=== PATIENT | female | born 1995 ===

== ENCOUNTER 2017-07-05 16:57 | Inpatient (IN) | payer BC ==
[2017-07-05] MEDS ORDERED: Misoprostol 200 MCG Tab PO PRN (17:46)
[2017-07-05] MEDS ORDERED: Sodium Chloride 0.9% 10 ML Syringe FLUSH PRN (17:46)
[2017-07-05] MEDS ORDERED: Methylergonovine 0.2 MG/1 ML Amp IM PRN (17:46)
[2017-07-05] MEDS ORDERED: Terbutaline 1 MG/ML SDV SUBCUT PRN (17:46)
[2017-07-05] MEDS ORDERED: Misoprostol 25 MCG (1/4 of 100 MCG) Tab PO PRN (17:46)
[2017-07-05] MEDS ORDERED: Misoprostol 25 MCG (1/4 of 100 MCG) Tab VAG PRN (17:46)
[2017-07-05] MEDS ORDERED: Sodium Chloride 0.9% 2.5 ML Syringe FLUSH PRN (17:46)
[2017-07-05] MEDS ORDERED: Lidocaine 1% 50 ML MDV INJECT PRN (17:46)
[2017-07-05] MEDS ORDERED: Water For Irrigation,Sterile 1,000 ML Container IRR PRN (17:46)
[2017-07-05] MEDS ORDERED: Carboprost Tromethamine 250 MCG/1 ML Amp IM PRN (17:46)
[2017-07-05] MEDS ORDERED: Misoprostol 25 MCG (1/4 of 100 MCG) Tab PO SCH (18:00)
[2017-07-05] MEDS ORDERED: Oxytocin/0.9 % Sodium Chloride 30 UNIT/500 ML BAG IV SCH ×2 (18:00)
[2017-07-05] MEDS ORDERED: Misoprostol 25 MCG (1/4 of 100 MCG) Tab VAG SCH (18:00)
[2017-07-05] MEDS ORDERED: Ampicillin 2 GM in Sodium Chloride 0.9% 100 ML IV ONE (18:10)
[2017-07-05] MEDS ORDERED: Ampicillin 2 GM in Sodium Chloride 0.9% 100 ML IV SCH (18:15)
[2017-07-05] MEDS: Lactated Ringers 1,000 ML IV SCH (18:34)
[2017-07-06] MEDS: Nalbuphine 10 MG/1 ML Vial IVPUSH PRN ×2 (04:19→12:39)
[2017-07-06] MEDS: Lactated Ringers 1,000 ML IV SCH ×3 (06:54→15:08)
[2017-07-06] MEDS ORDERED: Ampicillin 2 GM AdvVial IV ONE (07:49)
[2017-07-06] MEDS ORDERED: Sodium Chloride 0.9% 100 ML ONE (07:50)
--- NOTE | 2017-07-06 07:50 | PCM.LDHP ---
L&D History of Present Illness - General Date of Service: 07/06/17 Admit Problem/Dx: Patient Status Order with Admit Dx/Problem 07/05/17 17:46 Patient Status [ADT] Routine Admission Diagnosis/Problem Admission Diagnosis/Problem 07/06/17 07:46 22 yo EDC 07/07/2017 39 6/7wks. IOL due to having to leave for work next week. A+, RI, GBS pos. Source of Information: Patient History Limitations: Reports: No Limitations - History of Present Illness Pain Score: 4 Improves with: Reports: None Worsens with: Reports: None Associated Symptoms: Reports: N - Related Data Allergies/Adverse Reactions: Allergies Allergy/AdvReac Type Severity Reaction Status Date / Time No Known Allergies Allergy Verified 04/16/17 13:04 Past Medical History [employer] History: Reports: - Past Surgical History HEENT Surgical History: Reports: Other (See Below) Other HEENT Surgeries/Procedures: wisdom tooth extraction Social & Family History - Family History Family Medical History: Noncontributory - Tobacco Use Smoking Status *Q: Never Smoker Second Hand Smoke Exposure: No - Caffeine Use Caffeine Use: Reports: Coffee, Soda - Recreational Drug Use Recreational Drug Use: No H&P Review of Systems - Review of Systems: Review Of Systems: See Below General: Reports: No Symptoms HEENT: Reports: No Symptoms Pulmonary: Reports: No Symptoms Cardiovascular: Reports: No Symptoms Gastrointestinal: Reports: No Symptoms Genitourinary: Reports: No Symptoms Musculoskeletal: Reports: No Symptoms Skin: Reports: No Symptoms Psychiatric: Reports: No Symptoms Neurological: Reports: No Symptoms Hematologic/Lymphatic: Reports: No Symptoms Immunologic: Reports: No Symptoms L&D Exam - Exam Exam: See Below - Vital Signs Weight: 86.636 kg - Exam General: Alert, Oriented, Cooperative Cardiovascular: Regular Rhythm Rectal Exam: Deferred Genitourinary: Normal external exam, Normal speculum exam, Cervical dilitation, Cervical fluid Back Exam: Full Range of Motion Extremities: Normal Range of Motion, Non-Tender, No Pedal Edema, Normal Capillary Refill Skin: Warm, Dry, Intact Neurological: Reflexes Equal Bilateral, Normal Gait, Normal Speech, Normal Tone , Sensation Intact Psychiatric: Alert, Normal Affect, Normal Mood - Patient Data Lab Results Last 24 hrs: Laboratory Results - last 24 hr 07/05/17 07/05/17 Range/Units 18:22 18:22 WBC 4.76 (4.0-11.0) K/uL RBC 3.70 L (4.30-5.90) M/uL Hgb 10.4 L (12.0-16.0) g/dL Hct 31.9 L (36.0-46.0) % MCV 86.2 (80.0-98.0) fL MCH 28.1 (27.0-32.0) pg MCHC 32.6 (31.0-37.0) g/dL RDW Std Deviation 43.5 (28.0-62.0) fl RDW Coeff of Ryan 14 (11.0-15.0) % Plt Count 203 (150-400) K/uL MPV 11.90 (7.40-12.00) fL Nucleated RBC % 0.0 /100WBC Nucleated RBCs # 0 K/uL Blood Type A POSITIVE Antibody Screen NEGATIVE Result Diagrams: 07/05/17 18:22 - Problem List (1) Supervision of normal IUP (intrauterine ) in primigravida SNOMED Code(s): 78010030, 088132472, 090028047 ICD Code: Z34.00 - ENCNTR FOR SUPRVSN OF NORMAL FIRST , UNSP TRIMESTER Status: Acute Priority: High Current Visit: Yes Qualifiers: Trimester: third trimester Qualified Code(s): Z34.03 - Encounter for supervision of normal first , third trimester (2) Positive GBS test SNOMED Code(s): 5693919057599 ICD Code: B95.1 - STREPTOCOCCUS, GROUP B, CAUSING DISEASES CLASSD ELSWHR Status: Acute Priority: High Current Visit: Yes Problem List Initiated/Reviewed/Updated: Yes Orders Last 24hrs: Active Orders 24 hr Category Date Time Status Patient Status [ADT] Routine ADT 07/05/17 17:46 Active Bedrest Bathroom Privileges [RC] ASDIRECTED Care 07/05/17 17:46 Active Communication Order [RC] ASDIRECTED Care 07/05/17 17:46 Active Communication Order [RC] ASDIRECTED Care 07/05/17 17:46 Active Communication Order [RC] ASDIRECTED Care 07/05/17 17:46 Active Heart Tones [RC] CONTINUOUS Care 07/05/17 17:46 Active Non Stress Test [RC] PER UNIT ROUTINE Care 07/05/17 17:46 Active May Shower [RC] ASDIRECTED Care 07/05/17 17:46 Active Notify Provider [RC] PRN Care 07/05/17 17:46 Active Notify Provider [RC] PRN Care 07/05/17 17:46 Active Notify Provider [RC] PRN Care 07/05/17 17:46 Active Notify Provider [RC] STAT Care 07/05/17 17:46 Active Oxygen Therapy [RC] ASDIRECTED Care 07/05/17 17:46 Active Up ad Lara [RC] ASDIRECTED Care 07/05/17 17:46 Active Vaginal Exam [RC] PRN Care 07/05/17 17:46 Active Vaginal Exam [RC] PRN Care 07/05/17 17:46 Active Vital Signs [RC] PER UNIT ROUTINE Care 07/05/17 17:46 Active Vital Signs [RC] PER UNIT ROUTINE Care 07/05/17 17:46 Active Ampicillin 1 gm Med 07/05/17 22:00 Active Sodium Chloride 0.9% [Normal Saline] 50 ml IV Q4H Carboprost Tromethamine [Hemabate DS] Med 07/05/17 17:46 Active 250 mcg IM ASDIRECTED PRN Lactated Ringers [Ringers, Lactated] 1,000 ml Med 07/05/17 18:00 Active IV ASDIRECTED Lidocaine 1% [Xylocaine 1%] Med 07/05/17 17:46 Active 50 ml INJECT .ONCE PRN Methylergonovine [Methergine] Med 07/05/17 17:46 Active 0.2 mg IM ASDIRECTED PRN Misoprostol [Cytotec] Med 07/05/17 17:46 Active 200 mcg PO .ONCE PRN Misoprostol [Cytotec] Med 07/05/17 18:00 Active 25 mcg PO .ONCE Misoprostol [Cytotec] Med 07/05/17 17:46 Active 25 mcg PO Q4H PRN Misoprostol [Cytotec] Med 07/05/17 18:00 Active 25 mcg VAG .ONCE Misoprostol [Cytotec] Med 07/05/17 17:46 Active 25 mcg VAG Q4H PRN Nalbuphine [Nubain] Med 07/05/17 17:46 Active 10 mg IVPUSH ASDIRECTED PRN Oxytocin/0.9 % Sodium Chloride [Oxytocin 30 Unit/500 ML Med 07/05/17 18:00 Active -NS] 30 unit in 500 ml IV ASDIRECTED Oxytocin/0.9 % Sodium Chloride [Oxytocin 30 Unit/500 ML Med 07/05/17 18:00 Active -NS] 30 unit in 500 ml IV TITRATE Sodium Chloride 0.9% [Saline Flush] Med 07/05/17 17:46 Active 10 ml FLUSH ASDIRECTED PRN Sodium Chloride 0.9% [Saline Flush] Med 07/05/17 17:46 Active 2.5 ml FLUSH ASDIRECTED PRN Terbutaline [Brethine] Med 07/05/17 17:46 Active 0.25 mg SUBCUT ASDIRECTED PRN Water For Irrigation,Sterile [Sterile Water for Med 07/05/17 17:46 Active Irrigation] 1,000 ml IRR ASDIRECTED PRN Scalp Electrode [WOMSER] Per Unit Routine Oth 07/05/17 17:46 Ordered Medication Administration Instruction [OM.PC] Q3H Oth 07/05/17 18:00 Ordered Peripheral IV Insertion Adult [OM.PC] Routine Oth 07/05/17 17:46 Ordered Resuscitation Status Routine Resus Stat 07/05/17 17:46 Ordered Medication Orders Carboprost Tromethamine (Hemabate Ds) 250 mcg IM ASDIRECTED PRN PRN Reason: Post Hemorrhage Lactated Ringer's (Ringers, Lactated) 1,000 mls @ 150 mls/hr IV ASDIRECTED MANOHAR Last Admin: 07/06/17 06:54 Dose: 150 mls/hr Infusion: 07/06/17 01:15 Dose: 150 mls/hr Admin: 07/05/17 18:34 Dose: 150 mls/hr Oxytocin/Sodium Chloride (Oxytocin 30 Unit/500 Ml-Ns) 30 unit in 500 mls @ 999 mls/hr IV ASDIRECTED MANOHAR Oxytocin/Sodium Chloride (Oxytocin 30 Unit/500 Ml-Ns) 30 unit in 500 mls @ 2 mls/hr IV TITRATE MANOHAR; 2 MUNITS/MIN PRN Reason: Protocol Last Titration: 07/06/17 06:17 Dose: 14 munits/min, 14 mls/hr Titration: 07/06/17 05:13 Dose: 12 munits/min, 12 mls/hr Titration: 07/06/17 04:54 Dose: 10 munits/min, 10 mls/hr Titration: 07/06/17 03:58 Dose: 8 munits/min, 8 mls/hr Titration: 07/06/17 03:25 Dose: 6 munits/min, 6 mls/hr Titration: 07/06/17 02:15 Dose: 4 munits/min, 4 mls/hr Admin: 07/06/17 01:41 Dose: 2 munits/min, 2 mls/hr Ampicillin Sodium 1 gm/ Sodium (Chloride) 50 mls @ 100 mls/hr IV Q4H COUNTS INCLUDE 234 BEDS AT THE [facility] Lidocaine HCl (Xylocaine 1%) 50 ml INJECT .ONCE PRN PRN Reason: Laceration repair Methylergonovine Maleate (Methergine) 0.2 mg IM ASDIRECTED PRN PRN Reason: Post Hemorrhage Misoprostol (Cytotec) 200 mcg PO .ONCE PRN PRN Reason: Post Hemorrhage Misoprostol (Cytotec) 25 mcg VAG .ONCE COUNTS INCLUDE 234 BEDS AT THE [facility] Last Admin: 07/05/17 18:34 Dose: 25 mcg Misoprostol (Cytotec) 25 mcg VAG Q4H PRN PRN Reason: Cervical Ripening Misoprostol (Cytotec) 25 mcg PO Q4H PRN PRN Reason: Cervical Ripening Misoprostol (Cytotec) 25 mcg PO .ONCE COUNTS INCLUDE 234 BEDS AT THE [facility] Last Admin: 07/05/17 18:35 Dose: 25 mcg Nalbuphine HCl (Nubain) 10 mg IVPUSH ASDIRECTED PRN PRN Reason: Pain (severe 7-10) Last Admin: 07/06/17 04:19 Dose: 10 mg Sodium Chloride (Saline Flush) 10 ml FLUSH ASDIRECTED PRN PRN Reason: Keep Vein Open Sodium Chloride (Saline Flush) 2.5 ml FLUSH ASDIRECTED PRN PRN Reason: Keep Vein Open Sterile Water (Sterile Water For Irrigation) 1,000 ml IRR ASDIRECTED PRN PRN Reason: delivery Terbutaline Sulfate (Brethine) 0.25 mg SUBCUT ASDIRECTED PRN PRN Reason: Tacysystole Assessment/Plan Comment:: IOL A: 22 yo EDC 07/07/2017 39 6/7wks. IOL due to having to leave for work next week. A+, RI, GBS pos. P: Admit to L&D, cytotec to pitocin, Pain mngt prn, Amp for GBS pos. Anticipate . Dr Cordova updated on pt status.
[2017-07-06] MEDS: Ampicillin 1 GM in Sodium Chloride 0.9% 50 ML IV SCH ×4 (12:15→19:11)
[2017-07-06] MEDS ORDERED: Ropivacaine 100 ML ONE (14:08)
[2017-07-06] MEDS ORDERED: fentaNYL 100 MCG/2 ML SDV ONE (14:08)
--- NOTE | 2017-07-06 18:07 | PCM.DEL ---
L & D Note - General Info Date of Service: 07/06/17 Mother's Due Date: 07/07/17 - Delivery Note Labor: Induced by Oxytocin Cervical Ripening Method: Misoprostil Delivery Outcome: Livebirth Delivery Method: Spontaneous Vaginal Delivery-Single Infant Delivery Mode: Spontaneous Presentation: Vertex Nuchal Cord: None Anesthesia Type: Epidural Amniotic Fluid Description: Clear Episiotomy Type: None Laceration: 2nd Degree, Sulcus Suture type: Vicryl Suture size: 3-0 Placenta: Intact Cord: 3 Vessels Estimated Blood Loss: 400 Resuscitation Needed: No Second Stage Interventions: Reports: Pushing Effectively, Pushing, Pulls Own Legs Back Delivery Comments (Free Text/Narrative):: of viable female over intact perineum. head del with great pushing, shoulder and body followed. Infant to mothers abdomen with spont cry. RN at for ops. Delayed cord clamping. Pitocin to IVF. Cord clamped x2 and cut by FOB. Cord blood collected. Placenta delivered grossly intact. Inspection noted 2nd degree sulcus tear that was repaired in the usual manor. Fundus firm but continued to bleed. Methergin given IM. Bleeding slowed and stopped. EBL 400cc, APGARS 8/9, Wt pending bonding. Mother and baby left in stable condition for recovery. Induction Criteria - Decker Score Decker Score Dilation: Closed Decker Score Effacement: 60-70% Decker Score 's Station: -2 Decker Score Consistency: Soft Decker Score Cervix Position: Posterior Decker Score Total: 5 Decker Score Presenting Part: Reports: Cephalic - Induction Gestational Age >/= 39 wks: Yes Estimated Pelvis: Reports: Adequate Reassuring Monitoring Strip: Yes Absence of Tachy Systole: Yes - General Info Date of Service: 07/06/17 Admission Dx/Problem (Free Text): Patient Status Order with Admit Dx/Problem 07/05/17 17:46 Patient Status [ADT] Routine Admission Diagnosis/Problem Admission Diagnosis/Problem 07/06/17 07:46 22 yo EDC 07/07/2017 39 6/7wks. IOL due to having to leave for work next week. A+, RI, GBS pos. Functional Status: Reports: Pain Controlled - Review of Systems General: Reports: No Symptoms HEENT: Reports: No Symptoms Pulmonary: Reports: No Symptoms Cardiovascular: Reports: No Symptoms Gastrointestinal: Reports: No Symptoms Genitourinary: Reports: No Symptoms Musculoskeletal: Reports: No Symptoms Skin: Reports: No Symptoms Neurological: Reports: No Symptoms Psychiatric: Reports: No Symptoms - Patient Data Weight - Most Recent: 86.636 kg Lab Results Last 24 Hours: Laboratory Results - last 24 hr 07/05/17 07/05/17 Range/Units 18:22 18:22 WBC 4.76 (4.0-11.0) K/uL RBC 3.70 L (4.30-5.90) M/uL Hgb 10.4 L (12.0-16.0) g/dL Hct 31.9 L (36.0-46.0) % MCV 86.2 (80.0-98.0) fL MCH 28.1 (27.0-32.0) pg MCHC 32.6 (31.0-37.0) g/dL RDW Std Deviation 43.5 (28.0-62.0) fl RDW Coeff of Ryan 14 (11.0-15.0) % Plt Count 203 (150-400) K/uL MPV 11.90 (7.40-12.00) fL Nucleated RBC % 0.0 /100WBC Nucleated RBCs # 0 K/uL Blood Type A POSITIVE Antibody Screen NEGATIVE Med Orders - Current: Current Medications Carboprost Tromethamine (Hemabate Ds) 250 mcg IM ASDIRECTED PRN PRN Reason: Post Hemorrhage Lactated Ringer's (Ringers, Lactated) 1,000 mls @ 150 mls/hr IV ASDIRECTED MANOHAR Last Admin: 07/06/17 15:08 Dose: 150 mls/hr Oxytocin/Sodium Chloride (Oxytocin 30 Unit/500 Ml-Ns) 30 unit in 500 mls @ 999 mls/hr IV ASDIRECTED MANOHAR Oxytocin/Sodium Chloride (Oxytocin 30 Unit/500 Ml-Ns) 30 unit in 500 mls @ 2 mls/hr IV TITRATE MANOHAR; 2 MUNITS/MIN PRN Reason: Protocol Last Titration: 07/06/17 16:50 Dose: 14 munits/min, 14 mls/hr Ampicillin Sodium 1 gm/ Sodium (Chloride) 50 mls @ 100 mls/hr IV Q4H MANOHAR Last Admin: 07/06/17 16:29 Dose: 100 mls/hr Lidocaine HCl (Xylocaine 1%) 50 ml INJECT .ONCE PRN PRN Reason: Laceration repair Methylergonovine Maleate (Methergine) 0.2 mg IM ASDIRECTED PRN PRN Reason: Post Hemorrhage Last Admin: 07/06/17 17:53 Dose: 0.2 mg Misoprostol (Cytotec) 200 mcg PO .ONCE PRN PRN Reason: Post Hemorrhage Misoprostol (Cytotec) 25 mcg VAG .ONCE MANOHAR Last Admin: 07/05/17 18:34 Dose: 25 mcg Misoprostol (Cytotec) 25 mcg VAG Q4H PRN PRN Reason: Cervical Ripening Misoprostol (Cytotec) 25 mcg PO Q4H PRN PRN Reason: Cervical Ripening Misoprostol (Cytotec) 25 mcg PO .ONCE MANOHAR Last Admin: 07/05/17 18:35 Dose: 25 mcg Nalbuphine HCl (Nubain) 10 mg IVPUSH ASDIRECTED PRN PRN Reason: Pain (severe 7-10) Last Admin: 07/06/17 12:39 Dose: 10 mg Sodium Chloride (Saline Flush) 10 ml FLUSH ASDIRECTED PRN PRN Reason: Keep Vein Open Sodium Chloride (Saline Flush) 2.5 ml FLUSH ASDIRECTED PRN PRN Reason: Keep Vein Open Sterile Water (Sterile Water For Irrigation) 1,000 ml IRR ASDIRECTED PRN PRN Reason: delivery Terbutaline Sulfate (Brethine) 0.25 mg SUBCUT ASDIRECTED PRN PRN Reason: Tacysystole Discontinued Medications Ampicillin Sodium (Ampicillin) Confirm Administered Dose 2 gm IV .STK-MED ONE Stop: 07/06/17 07:50 Last Admin: 07/06/17 08:19 Dose: Not Given Fentanyl (Sublimaze) Confirm Administered Dose 200 mcg .ROUTE .STK-MED ONE Stop: 07/06/17 14:09 Last Admin: 07/06/17 15:33 Dose: Not Given Ampicillin Sodium 2 gm/ Sodium (Chloride) 100 mls @ 200 mls/hr IV Q4H MANOHAR Ampicillin Sodium 2 gm/ Sodium (Chloride) 100 mls @ 200 mls/hr IV ONETIME ONE Stop: 07/05/17 18:39 Last Admin: 07/06/17 07:56 Dose: 200 mls/hr Sodium Chloride (Normal Saline) Confirm Administered Dose 100 mls @ as directed .ROUTE .STK-MED ONE Stop: 07/06/17 07:51 Last Admin: 07/06/17 08:19 Dose: Not Given Ropivacaine (Naropin 0.2%) Confirm Administered Dose 100 mls @ as directed .ROUTE .STK-MED ONE Stop: 07/06/17 14:09 Last Admin: 07/06/17 15:33 Dose: Not Given - Exam General: Alert, Oriented, Cooperative, No Acute Distress Lungs: Normal Respiratory Effort GI/Abdominal Exam: Soft, Non-Tender (Female) Exam: Normal External Exam, Normal Bimanual Exam, Vaginal Bleeding, Vaginal Lesions Skin: Warm, Dry, Intact Wound/Incisions: Healing Well Neurological: No New Focal Deficit, Normal Speech, Normal Tone Psy/Mental Status: Alert, Normal Affect, Normal Mood - Problem List & Annotations (1) Supervision of normal IUP (intrauterine ) in primigravida SNOMED Code(s): 17644442, 266800568, 521756325 Code(s): Z34.00 - ENCNTR FOR SUPRVSN OF NORMAL FIRST , UNSP TRIMESTER Status: Acute Priority: High Current Visit: Yes Qualifiers: Trimester: third trimester Qualified Code(s): Z34.03 - Encounter for supervision of normal first , third trimester (2) Positive GBS test SNOMED Code(s): 3233972640481 Code(s): B95.1 - STREPTOCOCCUS, GROUP B, CAUSING DISEASES CLASSD ELSWHR Status: Acute Priority: High Current Visit: Yes (3) (normal spontaneous vaginal delivery) SNOMED Code(s): 02215215 Code(s): O80 - ENCOUNTER FOR FULL-TERM UNCOMPLICATED DELIVERY Status: Acute Priority: High Current Visit: Yes - Problem List Review Problem List Initiated/Reviewed/Updated: Yes - My Orders Last 24 Hours: My Active Orders 07/05/17 22:00 Ampicillin 1 gm Sodium Chloride 0.9% [Normal Saline] 50 ml IV Q4H 07/06/17 Lunch Regular Diet [DIET] - Assessment Assessment:: Delivery of viable girl. APGARS 8/9, Wt pending bonding. 2nd degree lac with repair. EBL 400cc. Stable - Plan Plan:: IOL A: 22 yo EDC 07/07/2017 39 6/7wks. IOL due to having to leave for work next week. A+, RI, GBS pos. P: Admit to L&D, cytotec to pitocin, Pain mngt prn, Amp for GBS pos. Anticipate . Dr Cordova updated on pt status. Delivery routine pp plan of care
[2017-07-06] MEDS ORDERED: Docusate Sodium 100 MG Cap PO PRN (18:15)
[2017-07-06] MEDS ORDERED: Witch Hazel Medicated Pads 40/Jar TOP PRN (18:15)
[2017-07-06] MEDS ORDERED: oxyCODONE 5 MG Tab PO PRN (18:15)
[2017-07-06] MEDS ORDERED: Benzocaine/Menthol 20%-0.5% Spray 78 GM Cannister TOP PRN (18:15)
[2017-07-06] MEDS ORDERED: Bisacodyl 10 MG Supp RECTAL PRN (18:15)
[2017-07-06] MEDS ORDERED: Ibuprofen 400 MG Tab PO PRN (18:15)
[2017-07-06] MEDS ORDERED: Lanolin 100% Cream 7 GM Tube TOP PRN (18:15)
[2017-07-06] MEDS ORDERED: Acetaminophen 500 MG Tab PO PRN ×2 (18:15)
[2017-07-07] MEDS: Ibuprofen 800 MG Tab PO PRN ×2 (00:38→09:31)
--- NOTE | 2017-07-07 08:48 | PCM.DCSUM1 ---
Discharge Summary - Hospital Course Free Text/Narrative:: Discharge home with infant, follow up 6 weeks for post visit. - Discharge Data Discharge Date: 07/07/17 Discharge Disposition: Home, Self-Care 01 Condition: Good - Discharge Diagnosis/Problem(s) (1) Supervision of normal IUP (intrauterine ) in primigravida SNOMED Code(s): 65524212, 554844479, 475157405 ICD Code: Z34.00 - ENCNTR FOR SUPRVSN OF NORMAL FIRST , UNSP TRIMESTER Status: Acute Priority: High Current Visit: Yes Qualifiers: Trimester: third trimester Qualified Code(s): Z34.03 - Encounter for supervision of normal first , third trimester (2) Positive GBS test SNOMED Code(s): 6782771272111 ICD Code: B95.1 - STREPTOCOCCUS, GROUP B, CAUSING DISEASES CLASSD ELSWHR Status: Acute Priority: High Current Visit: Yes (3) (normal spontaneous vaginal delivery) SNOMED Code(s): 18369113 ICD Code: O80 - ENCOUNTER FOR FULL-TERM UNCOMPLICATED DELIVERY Status: Acute Priority: High Current Visit: Yes - Patient Instructions Diet: Usual Diet as Tolerated Activity: As Tolerated, No Strenuous Activities, Rest and Relax Today Driving: May Drive Today Showering/Bathing: May Shower Notify Provider of: Fever, Increased Pain, Swelling and Redness, Nausea and/or Vomiting Other/Special Instructions: Discharge home with , follow up 6 weeks for post visit. - Discharge Plan Referrals: [facility] [Outside] Katrin Jon CNM [Mid-] - 08/17/17 10:30 am - General Info Date of Service: 07/07/17 Admission Dx/Problem (Free Text: Patient Status Order with Admit Dx/Problem 07/05/17 17:46 Patient Status [ADT] Routine Admission Diagnosis/Problem Admission Diagnosis/Problem 07/06/17 07:46 22 yo EDC 07/07/2017 39 6/7wks. IOL due to having to leave for work next week. A+, RI, GBS pos. Functional Status: Reports: Pain Controlled, Tolerating Diet, Ambulating, Urinating - Review of Systems General: Reports: No Symptoms HEENT: Reports: No Symptoms Pulmonary: Reports: No Symptoms Cardiovascular: Reports: No Symptoms Gastrointestinal: Reports: No Symptoms Genitourinary: Reports: No Symptoms Musculoskeletal: Reports: No Symptoms Skin: Reports: No Symptoms Neurological: Reports: No Symptoms Psychiatric: Reports: No Symptoms - Patient Data Vitals - Most Recent: Last Vital Signs Temp 36.4 C 07/07/17 05:00 Pulse 100 07/07/17 05:00 Resp 16 07/07/17 05:00 BP 119/67 07/07/17 05:00 Pulse Ox 97 07/07/17 05:00 Weight - Most Recent: 86.636 kg Lab Results - Last 24 hrs: Laboratory Results - last 24 hr 07/07/17 Range/Units 06:58 Hgb 9.4 L (12.0-16.0) g/dL Hct 28.6 L (36.0-46.0) % Med Orders - Current: Current Medications Acetaminophen (Tylenol Extra Strength) 500 mg PO Q4H PRN PRN Reason: Pain Acetaminophen (Tylenol Extra Strength) 1,000 mg PO Q4H PRN PRN Reason: Pain Benzocaine/Menthol (Dermoplast Pain Relief 20%-0.5% [place]) 0 gm TOP ASDIRECTED PRN PRN Reason: Perineal Comfort Measure Last Admin: 07/06/17 21:21 Dose: 78 gm Bisacodyl (Dulcolax) 10 mg RECTAL .ONCE PRN PRN Reason: Constipation Docusate Sodium (Colace) 100 mg PO BID PRN PRN Reason: Constipation Emollient Ointment (Lansinoh Hpa) 0 gm TOP ASDIRECTED PRN PRN Reason: Sore Nipples Last Admin: 07/06/17 21:22 Dose: 7 gm Ibuprofen (Motrin) 400 mg PO Q4H PRN PRN Reason: Pain Ibuprofen (Motrin) 800 mg PO Q6H PRN PRN Reason: Pain Last Admin: 07/07/17 00:38 Dose: 800 mg Oxycodone HCl (Oxycodone) 5 mg PO Q2H PRN PRN Reason: Pain Witch Denise (Tucks) 1 pad TOP ASDIRECTED PRN PRN Reason: comfort care Last Admin: 07/06/17 21:22 Dose: 1 pad Discontinued Medications Ampicillin Sodium (Ampicillin) Confirm Administered Dose 2 gm IV .STK-MED ONE Stop: 07/06/17 07:50 Last Admin: 07/06/17 08:19 Dose: Not Given Carboprost Tromethamine (Hemabate Ds) 250 mcg IM ASDIRECTED PRN PRN Reason: Post Hemorrhage Fentanyl (Sublimaze) Confirm Administered Dose 200 mcg .ROUTE .[facility]-MED ONE Stop: 07/06/17 14:09 Last Admin: 07/06/17 15:33 Dose: Not Given Lactated Ringer's (Ringers, Lactated) 1,000 mls @ 150 mls/hr IV ASDIRECTED MAONHAR Last Admin: 07/06/17 15:08 Dose: 150 mls/hr Oxytocin/Sodium Chloride (Oxytocin 30 Unit/500 Ml-Ns) 30 unit in 500 mls @ 999 mls/hr IV ASDIRECTED MANOHAR Oxytocin/Sodium Chloride (Oxytocin 30 Unit/500 Ml-Ns) 30 unit in 500 mls @ 2 mls/hr IV TITRATE MANOHAR; 2 MUNITS/MIN PRN Reason: Protocol Last Titration: 07/06/17 17:39 Dose: 999 mls/hr Ampicillin Sodium 2 gm/ Sodium (Chloride) 100 mls @ 200 mls/hr IV Q4H MANOHAR Ampicillin Sodium 1 gm/ Sodium (Chloride) 50 mls @ 100 mls/hr IV Q4H MANOHAR Last Admin: 07/06/17 19:11 Dose: Not Given Ampicillin Sodium 2 gm/ Sodium (Chloride) 100 mls @ 200 mls/hr IV ONETIME ONE Stop: 07/05/17 18:39 Last Admin: 07/06/17 07:56 Dose: 200 mls/hr Sodium Chloride (Normal Saline) Confirm Administered Dose 100 mls @ as directed .ROUTE .[facility] ONE Stop: 07/06/17 07:51 Last Admin: 07/06/17 08:19 Dose: Not Given Ropivacaine (Naropin 0.2%) Confirm Administered Dose 100 mls @ as directed .ROUTE .[facility]-MED ONE Stop: 07/06/17 14:09 Last Admin: 07/06/17 15:33 Dose: Not Given Lidocaine HCl (Xylocaine 1%) 50 ml INJECT .ONCE PRN PRN Reason: Laceration repair Methylergonovine Maleate (Methergine) 0.2 mg IM ASDIRECTED PRN PRN Reason: Post Hemorrhage Last Admin: 07/06/17 17:53 Dose: 0.2 mg Misoprostol (Cytotec) 200 mcg PO .ONCE PRN PRN Reason: Post Hemorrhage Misoprostol (Cytotec) 25 mcg VAG .ONCE MANOHAR Last Admin: 07/05/17 18:34 Dose: 25 mcg Misoprostol (Cytotec) 25 mcg VAG Q4H PRN PRN Reason: Cervical Ripening Misoprostol (Cytotec) 25 mcg PO Q4H PRN PRN Reason: Cervical Ripening Misoprostol (Cytotec) 25 mcg PO .ONCE MANOHAR Last Admin: 07/05/17 18:35 Dose: 25 mcg Nalbuphine HCl (Nubain) 10 mg IVPUSH ASDIRECTED PRN PRN Reason: Pain (severe 7-10) Last Admin: 07/06/17 12:39 Dose: 10 mg Sodium Chloride (Saline Flush) 10 ml FLUSH ASDIRECTED PRN PRN Reason: Keep Vein Open Sodium Chloride (Saline Flush) 2.5 ml FLUSH ASDIRECTED PRN PRN Reason: Keep Vein Open Sterile Water (Sterile Water For Irrigation) 1,000 ml IRR ASDIRECTED PRN PRN Reason: delivery Terbutaline Sulfate (Brethine) 0.25 mg SUBCUT ASDIRECTED PRN PRN Reason: Tacysystole - Exam General: Reports: Alert, Oriented, Cooperative Lungs: Reports: Clear to Auscultation, Normal Respiratory Effort Cardiovascular: Reports: Regular Rate, Regular Rhythm GI/Abdominal Exam: Soft, Non-Tender (Female) Exam: Vaginal Bleeding Rectal (Female) Exam: Deferred Back Exam: Reports: Full Range of Motion Extremities: Normal Range of Motion, Non-Tender, No Pedal Edema, Normal Capillary Refill Skin: Reports: Warm Wound/Incisions: Reports: Healing Well Neurological: Reports: No New Focal Deficit, Normal Speech, Normal Tone Psy/Mental Status: Reports: Alert, Normal Affect, Normal Mood *Q Meaningful Use (DIS) - VTE *Q VTE Criteria *Q: - Stroke *Q Stroke Criteria *Q: - AMI *Q AMI Criteria *Q:
--- NOTE | 2017-07-07 12:09 | PCM48HPAN ---
Post Anesthesia Note - EVALUATION WITHIN 48HRS OF ANESTHETIC Vital Signs in Normal Range: Yes Patient Participated in Evaluation: Yes Respiratory Function Stable: Yes Airway Patent: Yes Cardiovascular Function Stable: Yes Hydration Status Stable: Yes Pain Control Satisfactory: Yes Nausea and Vomiting Control Satisfactory: Yes Mental Status Recovered: Yes
== END 2017-07-07 20:50 | disposition home or self-care (01) | DRG 560 ==
LOC: MW.OBCHECK 16:57 → MW.OB 17:46 → OBSVTOIN 17:48 → MW.OB 17:48
PROVIDERS: ADMIT Obstetrics & Gynecology; ATTEND Obstetrics & Gynecology
PROC: 10E0XZZ Delivery of Products of Conception, External Approach (ICD-10-PCS; principal; 2017-07-05)
PROC: 3E0P7VZ Introduction of Hormone into Female Reproductive, Via Natural or Artificial Opening (ICD-10-PCS; 2017-07-05)
PROC: 3E033VJ Introduction of Other Hormone into Peripheral Vein, Percutaneous Approach (ICD-10-PCS; 2017-07-05)
PROC: 10907ZC Drainage of Amniotic Fluid, Therapeutic from Products of Conception, Via Natural or Artificial Opening (ICD-10-PCS; 2017-07-05)
PROC: 0KQM0ZZ Repair Perineum Muscle, Open Approach (ICD-10-PCS; 2017-07-05)
DX: O70.1 Second degree perineal laceration during delivery (principal); O99.824 Streptococcus B carrier state complicating childbirth; Z3A.39 39 weeks gestation of pregnancy; Z37.0 Single live birth
CPT/HCPCS: 01967; 36415; 51702; 59025; 59409; 85014; 85018; 85027; 86850; 86900; 86901; A9270-GY; J0290; J2210; J2300; J2590; J7030; J7050; J7120

== ENCOUNTER 2021-12-31 05:12 | Inpatient (IN) | payer BC ==
[2021-12-31] MEDS ORDERED: Carboprost Tromethamine 250 MCG/1 ML Amp IM PRN (07:09)
[2021-12-31] MEDS ORDERED: Sodium Chloride 0.9% 10 ML Syringe FLUSH PRN (07:09)
[2021-12-31] MEDS ORDERED: Tranexamic Acid 1,000 MG in Sodium Chloride 0.9% 100 ML IV PRN (07:09)
[2021-12-31] MEDS ORDERED: Water For Irrigation,Sterile 1,000 ML Container IRR PRN (07:09)
[2021-12-31] MEDS ORDERED: Butorphanol 1 MG/ML SDV IVPUSH PRN (07:09)
[2021-12-31] MEDS ORDERED: Methylergonovine 0.2 MG/1 ML Amp IM PRN (07:09)
[2021-12-31] MEDS ORDERED: Lidocaine 1% 50 ML MDV INJECT PRN (07:09)
[2021-12-31] MEDS ORDERED: Misoprostol 200 MCG Tab PO PRN (07:09)
[2021-12-31] MEDS ORDERED: Sodium Chloride 0.9% 20 ML SDV IV PRN (07:09)
[2021-12-31] MEDS ORDERED: Sodium Chloride 0.9% 2.5 ML Syringe FLUSH PRN (07:09)
[2021-12-31] MEDS ORDERED: Oxytocin/0.9 % Sodium Chloride 30 UNIT/500 ML BAG IV SCH (07:15)
[2021-12-31] MEDS ORDERED: Lactated Ringers 1,000 ML IV SCH (07:15)
[2021-12-31] MEDS ORDERED: ePHEDrine 50 MG/ML SDV IVPUSH PRN ×2 (09:49)
[2021-12-31] MEDS ORDERED: Ropivacaine HCl/PF 400 MG in Premix Bag 1 BAG EPIDUR SCH (10:00)
[2021-12-31] MEDS ORDERED: Misoprostol 25 MCG (1/4 of 100 MCG) Tab PO ONE ×2 (10:30)
[2021-12-31] MEDS ORDERED: Ibuprofen 800 MG Tab PO PRN (15:20)
[2021-12-31] MEDS ORDERED: Docusate Sodium 100 MG Cap PO PRN (15:20)
[2021-12-31] MEDS ORDERED: Witch Hazel Medicated Pads 40/Jar TOP PRN (15:20)
[2021-12-31] MEDS ORDERED: Ibuprofen 400 MG Tab PO PRN (15:20)
[2021-12-31] MEDS ORDERED: oxyCODONE 5 MG Tab PO PRN (15:20)
[2021-12-31] MEDS ORDERED: Lanolin 100% Cream 7 GM Tube TOP PRN (15:20)
[2021-12-31] MEDS ORDERED: Bisacodyl 10 MG Supp RECTAL PRN (15:20)
[2021-12-31] MEDS ORDERED: Benzocaine/Menthol 20%-0.5% Spray 78 GM Cannister TOP PRN (15:20)
[2021-12-31] MEDS ORDERED: Acetaminophen 500 MG Tab PO PRN (15:20)
[2021-12-31] MEDS: Acetaminophen 500 MG Tab PO PRN (20:04)
[2022-01-01] MEDS: Acetaminophen 500 MG Tab PO PRN (01:03)
== END 2022-01-01 16:52 | disposition home or self-care (01) | DRG 560 ==
LOC: MW.OBCHECK 05:12 → MW.OB 05:14 → MW.OBCHECK 07:08 → MW.OB 07:09 → UNDOADMOB 09:23 → MW.OB 09:23 → OBSVTOIN 15:20 → MW.OB 18:15
PROVIDERS: ADMIT Obstetrics & Gynecology Obstetrics; ATTEND Obstetrics & Gynecology Obstetrics
PROC: 10E0XZZ Delivery of Products of Conception, External Approach (ICD-10-PCS; principal; 2021-12-31)
PROC: 10907ZC Drainage of Amniotic Fluid, Therapeutic from Products of Conception, Via Natural or Artificial Opening (ICD-10-PCS; 2021-12-31)
PROC: 3E0R3BZ Introduction of Anesthetic Agent into Spinal Canal, Percutaneous Approach (ICD-10-PCS; 2021-12-31)
PROC: 00HU33Z Insertion of Infusion Device into Spinal Canal, Percutaneous Approach (ICD-10-PCS; 2021-12-31)
DX: O80 Encounter for full-term uncomplicated delivery (principal); Z37.0 Single live birth; Z3A.38 38 weeks gestation of pregnancy; Z20.822 Contact with and (suspected) exposure to COVID-19
CPT/HCPCS: 36415; 59025; 59409; 85014; 85018; 85027; 86592; 86850; 86900; 86901; A9270-GY; J2590; J7120; U0002